=== PATIENT | male | born 1950 | race Caucasian/White ===

== ENCOUNTER 2018-03-24 13:31 | Observation (INO) | payer MEDICARE, OTHER ==
--- OUTSIDE RECORDS SUMMARY | 2018-03-24 14:07 | XMS REPORT ---
:1950 External Reference #:[id number] Author Organization [employer] Address [address] [facility] [address] [place] [address] [place] [address] Phone [phone] Care Team Providers Name Role Phone Antonia Fofana MD Primary Care Physician Unavailable Payers Type Date Identification Numbers Payment Provider Subscriber Medicare Primary Policy Number: [id number] Medicare Chris Murray PayID: [id number] [address] [place] [address] Medigap Part B Policy Number: [id number] Specific [employer] Xiomy Decoo PayID: [id number] [address] [place] [address] Problems Date Description Provider Status Onset: 02/22/2018 Localized, primary osteoarthritis Cherise Black M.D. Active Social History Type Date Description Comments Lives With Spouse Occupation Retired ETOH Use Drinks 5 Alcoholic Beverages Per Week Smoking Patient is a former smoker Exercise Type/Frequency Exercises sporadically Allergies, Adverse Reactions, Alerts Date Description Reaction Status Severity Comments 02/22/2018 Penicillin G RASH active ALL Forms Medications Medication Date Status Form Strength Qnty SIG Indications Ordering Provider Simvastatin Active Tablets 10mg Take 1 Unknown 000 Tablet By Mouth Every Day Losartan Active Tablets 50mg Take 1 Unknown Potassium 000 Tablet By Mouth Two Times Daily Azithromycin Active Tablets 500mg Take 1 Unknown 000 Tablet By Mouth One Hour Prior To Dental Procedure as Needed Metoprolol Active Tablets 25mg Take 1 Unknown Succinate ER 000 ER 24HR Tablet By Mouth Every Day Viagra 0 Active Tablets 50mg 1 by mouth Unknown 000 as needed Amlodipine Active Tablets 5mg Take 1 Unknown Besylate 000 Tablet By Mouth Every Day Vital Signs Date Vital Result Comment 02/22/2018 Height 72 inches 6'0" Weight 265.00 lb BP Systolic Sitting 102 mmHg BP Diastolic Sitting 64 mmHg Respiratory Rate 16 /min Body Temperature 98.2 F Pain Level 1 BMI (Body Mass Index) 35.9 kg/m2 Results Description No Information Procedures Date CPT Code Description Status 04/21/2016 92680 ECHO Transthorasic Realtime 2D W Doppler & Color Flow Completed Hosp Plan of Care 02/22/2018 - Cherise Black M.D.M25.562 Pain in left kneeFollow up:Follow up: M25.462 Effusion, left kneeM17.12 Unilateral primary osteoarthritis, left knee
--- OUTSIDE RECORDS SUMMARY | 2018-03-24 14:07 | XMS REPORT ---
:1950 External Reference #:[id number] Author Organization [employer] Address [address] [facility] [place] [address] [place] [address] Phone [phone] Care Team Providers Name Role Phone Antonia Fofana MD Primary Care Physician Unavailable Payers Type Date Identification Numbers Payment Provider Subscriber Medicare Primary Policy Number: [id number] Medicare Chris Murray PayID: [id number] [address] [place] [address] Medigap Part B Policy Number: [id number] [employer] Xiomy Decoo PayID: [id number] [address] [place] [address] Problems Date Description Provider Status Onset: 02/22/2018 [...] Procedures Date CPT Code Description Status 04/21/2016 14263 ECHO Transthorasic Realtime 2D W Doppler & Color Flow Completed Hosp Encounters Type Date Location Provider CPT E/M Dx Office Visit 02/22/2018 Orthopedic Services Cherise Black M.D. 75940 M25.562 2:30p Of [facility] M25.462 M17.12 Plan of Care 02/22/2018 - Cherise Black M.D.M25.562 Pain in left kneeFollow up:Follow up: M25.462 Effusion, left kneeM17.12 Unilateral primary osteoarthritis, left knee
--- OUTSIDE RECORDS SUMMARY | 2018-03-24 14:07 | XMS REPORT ---
:1950 External Reference #:[id number] Author Organization [email or web address] Address [address] [facility] [place] [address] [place] [address] Phone [phone] Care Team Providers Name Role Phone Antonia Fofana MD Primary Care Physician Unavailable Payers Type Date Identification Numbers Payment Provider Subscriber Medicare Primary Policy Number: [id number] Medicare Chris Murray PayID: [id number] [address] [place] [address] Medigap Part B Policy Number: [id number] [employer] Xiomy Decoo PayID: [id number] [address] [place] [address] Problems Date Description Provider Status Onset: 02/22/2018 [...] Procedures Date CPT Code Description Status 04/21/2016 15576 ECHO Transthorasic Realtime 2D W Doppler & Color Flow Completed Hosp Plan of Care 02/22/2018 - Cherise Black M.D.M25.562 Pain in left kneeFollow up:Follow up: M25.462 Effusion, left kneeM17.12 Unilateral primary osteoarthritis, left knee
--- NOTE | 2018-03-24 18:05 | ED ---
Neurological HPI - HPI Summary HPI Summary: This patient is a 68 year old M presenting to [facility] accompanied by his with a chief complaint of temporary loss of short term memory for 3.5 hours starting at 1800 last PM (03/23/18). Pt denies any current sx. His stated that He didnt look like someone who was having a stroke. Pt denies confusion , numbness, weakness. Endorses similar episode 15 years ago but it was must worse. Pt denies PMHx DM, endorses HTN, denies other medical problems. - History of Current Complaint Chief Complaint: EDGeneral Stated Complaint: GENERAL ILLNESS Time Seen by Provider: 03/24/18 17:13 Hx Obtained From: Patient, Family/Doll Surgeon Onset/Duration: Sudden Onset, Started hours ago, Resolved Timing: Sudden Onset Onset Severity: Moderate Current Severity: None Neurological Deficit Location: Generalized Pain Intensity: 0 Pain Scale Used: 0-10 Numeric Character: Other: - temporary short term amnesia Aggravating: Nothing Alleviating: Spontanious Resolution Associated Signs and Symptoms: Positive: Memory Loss. Negative: Confusion, Weakness, Loss of Consciousness, Numbness TPA Considered: No - Allergy/Home Medications Allergies/Adverse Reactions: Allergies Allergy/AdvReac Type Severity Reaction Status Date / Time Penicillins Allergy Hives Verified 03/24/18 16:52 Home Medications: Home Medications Losartan TAB* [Cozaar TAB*] 50 mg PO BID 03/24/18 [History Confirmed 03/24/18] Metoprolol Succinate XL TAB* [Toprol XL TAB*] 25 mg PO DAILY 03/24/18 [History Confirmed 03/24/18] Simvastatin TAB(NF) [Zocor(NF)] 10 mg PO DAILY 03/24/18 [History Confirmed 03/24] amLODIPine TAB* [Norvasc 5 mg TAB*] 5 mg PO DAILY 03/24/18 [History Confirmed ] PMH/Surg Hx/FS Hx/Imm Hx Endocrine/Hematology History: Denies: Hx Diabetes Cardiovascular History: Reports: Hx Hypertension History: Denies: Hx Renal Disease Sensory History: Reports: Hx Contacts or Glasses Opthamlomology History: Reports: Hx Contacts or Glasses EENT History: Denies: Hx Deafness - Surgical History Surgery Procedure, Year, and Place: RIGHT KNEE REPLACEMENT. BILAT MENISCUS SURGERY. TONSILLECTOMY Infectious Disease History: No Infectious Disease History: Denies: Traveled Outside the [place] in Last 30 Days - Family History Known Family History: Negative: Blood Disorder - Social History Occupation: Retired Lives: With Family - Alcohol Use: Occasionally Substance Use Type: Reports: None Smoking Status (MU): Former Smoker Review of Systems Negative: Fever, Other - confusion Neurological: Other - endorses amnesia of short term memory Negative: Weakness, Numbness All Other Systems Reviewed And Are Negative: Yes Physical Exam - Summary Physical Exam Summary: Appearance: Well appearing, no pain distress Skin: warm, dry, reflects adequate perfusion Head/face: normal Eyes: EOMI, LEAH ENT: normal Neck: supple, non-tender Respiratory: CTA, breath sounds present Cardiovascular: RRR, pulses symmetrical Abdomen: non-tender, soft Bowel: present Musculoskeletal: normal, strength/ROM intact Neuro: normal, sensory motor intact, A&Ox3, NIH score = 0 Triage Information Reviewed: Yes Vital Signs On Initial Exam: Initial Vitals Temp Pulse Resp BP Pulse Ox 98.1 F 66 16 127/79 99 03/24/18 13:34 03/24/18 13:34 03/24/18 13:34 03/24/18 13:34 03/24/18 13:34 Vital Signs Reviewed: Yes Diagnostics - Vital Signs Vital Signs Temp Pulse Resp BP Pulse Ox 03/24/18 17:51 17 120/96 03/24/18 17:21 61 13 122/78 96 03/24/18 17:00 60 17 96 03/24/18 16:51 62 19 146/95 98 03/24/18 13:34 98.1 F 66 16 127/79 99 - Laboratory Result Diagrams: 03/24/18 18:56 03/24/18 18:56 Lab Statement: Any lab studies that have been ordered have been reviewed, and results considered in the medical decision making process. - Radiology CXR Xray Interpretation: No Acute Changes Radiology Interpretation Completed By: Radiologist - No active disease. - CT Brain CT Interpretation: No Acute Changes CT Interpretation Completed By: Radiologist - No acute intracranial findings. Dr. Mart has reviewed this report. - EKG 1738 Cardiac Rate: NL - 66 EKG Rhythm: Sinus Rhythm ST Segment: Non-Specific EKG Interpretation: non-specific ST-T changes NIH Scale - NIH Scale Level of Consciousness: Alert/Keenly Responsive Ask Patient the Month and His/Her Age: Both Correct Ask Pt to Open/Close Eyes and Senior Director Of [employer]/Release Non-Paretic Hand: Both Correctly Best Gaze (Only Horizontal Eye Movement): Normal Visual Field Testing: No Visual Loss Facial Paresis-Pt to Smile & Close Eyes or Grimace Symmetry: Normal/Symmetrical Motor Function - Right Arm: No Drift-Holds 10 Seconds Motor Function - Left Arm: No Drift-Holds 10 Seconds Motor Function - Right Leg: No Drift-Holds 10 Seconds Motor Function - Left Leg: No Drift-Holds 10 Seconds Limb Ataxia-Must be out of Proportion to Weakness Present: Absent Sensory (Use Pinprick to Test Arms/Legs/Trunk/Face): Normal Best Language (Describe Picture, Name Items): No Aphasia Dysarthria (Read Several Words): Normal Extinction and Inattention: No Abnormality Total Score: 0 Course/Dx - Course Course Of Treatment: A 68-year-old M presents to the ED with a CC of FND from 8823-4526 last PM (03/23/18. (+) short term memory amnesia. (-) current sx, confusion, numbness, weakness. Similar episode with more severe sx 15 years ago , PMHx HTN. A CXR was (-). An EKG reveals nl sinus rythym of 66 BPM, non- specific ST-T changes. A CT brain was (-). In the ED course, pt was given tylenol, maalox, ASA, colace, heparace, zofran, toprol, senakot, zocor. - Differential Dx Differential Diagnoses Neuro: Positive: Cerebrovascular Accident, Intracranial Bleed, Transient Ischemic Attack - Diagnoses Provider Diagnoses: TIA (transient ischemic attack), TGA (transient global amnesia) - Physician Notifications Discussed Care Of Patient With: Susan Giles Time Discussed With Above Provider: 19:10 Instructed by Provider To: Other - accepted admission - Critical Care Time Critical Care Time: 30-74 min Discharge - Sign-Out/Discharge Documenting (check all that apply): Patient Departure - admit - Discharge Plan Condition: Fair Disposition: ADMITTED TO [facility] Referrals: Antonia Fofana MD [Primary Care Provider] - - Billing Disposition and Condition Condition: FAIR Disposition: Admitted to [facility]
--- NOTE | 2018-03-24 18:26 | RAD ---
INDICATION: TIA COMPARISON: None TECHNIQUE: Noncontrast axial source images were acquired from the skull base to the vertex. FINDINGS: Ventricles/sulci: The ventricles and cisterns are normal in size and configuration for age. Brain parenchyma: There is no focal parenchymal finding, evidence of intracranial mass, or intracranial mass effect. Intracranial hemorrhage:None. Extra-axial spaces: There are no abnormal extra axial fluid collections or evidence of extra-axial mass. Calvarium: There is no calvarial fracture or other calvarial abnormality. Scalp: There is no evidence of scalp or extracalvarial soft tissue abnormality. Paranasal sinuses/mastoid: The paranasal sinuses and mastoid air cells are clear. Other: None. IMPRESSION: No acute intracranial findings
[2018-03-24 19:04] LABS: ABS Basophils 0.1 10^3/ul (0-0.2); ABS Eosinophils 0.4 10^3/ul (0-0.6); ABS Lymphocytes 2.3 10^3/ul (1.0-4.8); ABS Monocytes 0.7 10^3/ul (0-0.8); ABS Neutrophils 4.8 10^3/ul (1.5-7.7); ABS Nucleated RBC 0 10^3/ul; Eosinophil % 4.8 % (0-6); Hematocrit 44 % (42-52); Hemoglobin 14.9 g/dl (14.0-18.0); Lymphocyte % 28.2 % (25-47); Mean Corpuscular HGB Conc 34 g/dl (31-36); Mean Corpuscular Hemoglobin 30 pg (27-31); Mean Corpuscular Volume 89 fL (80-94); Mean Platelet Volume 7.2 um3 (7.4-10.4); Nucleated Red Blood Cells % 0; Platelet Count 244 10^3/ul (150-450); Red Cell Distribution Width 14 % (10.5-15); White Blood Count 8.3 10^3/ul (3.5-10.8)
[2018-03-24 19:13] LABS: INR 0.95 (0.77-1.02)
[2018-03-24 19:23] LABS: EGFR Non-African American 75.6 (>60)
[2018-03-24] MEDS ORDERED: Senna TAB PO PRN (19:51)
[2018-03-24] MEDS ORDERED: Acetaminophen TAB* 325 MG PO PRN (19:51)
[2018-03-24] MEDS ORDERED: Docusate CAP* 100 MG PO PRN (19:51)
[2018-03-24] MEDS ORDERED: Ondansetron INJ* 2 MG/ML VIAL IV PRN (19:51)
[2018-03-24] MEDS ORDERED: Al Hydrox/Mg Hydrox/Simet LIQ* 30 ML UDC PO PRN (19:51)
[2018-03-24] MEDS ORDERED: Aspirin 81 mg CHEW TAB* 81 MG TAB.CHEW PO ONE (19:58)
--- NOTE | 2018-03-24 19:59 | RAD ---
INDICATION: TIA COMPARISON: None TECHNIQUE: An AP portable view obtained at 1758 hours is submitted. FINDINGS: Bones/Soft Tissues: There are no acute bony findings. Cardiomediastinal: The cardiomediastinal silhouette is normal. Lungs: There are no infiltrates. Pleura: There are no pleural effusions. Other: None IMPRESSION: NO ACTIVE DISEASE.
[2018-03-25] MEDS ORDERED: Atorvastatin* 40 MG TAB ONE (00:37)
[2018-03-25] MEDS: Heparin VIAL(*) 5000 UNITS/ML VIAL (FIVE THOUSAND) SUBCUT SCH ×3 (00:42→14:27)
[2018-03-25] MEDS: Atorvastatin* 10 MG TAB ONE ×2 (00:43→03:53)
--- NOTE | 2018-03-25 01:11 | HP ---
CC: Antonia Fofana MD * HISTORY AND PHYSICAL: DATE OF ADMISSION: 03/24/18 TIME OF EVALUATION: 1899. PRIMARY CARE PHYSICIAN: Antonia Fofana MD CHIEF COMPLAINT: Amnesia. HISTORY OF PRESENT ILLNESS: This is a 68-year-old male with a remote history of transient global amnesia, hypertension, and hyperlipidemia, who presents to the emergency room with another episode of amnesia. The patient's is at the bedside, who also provides the history. The patient states he was in his usual state of health yesterday. He is retired. He states that he does a lot of reading and does not do too much, and last evening he went to a [employer]. He split a half a bottle of wine, but did not drink at all with his friend and his states he just was not acting right last evening. He kept focussing on his glasses case, looking for perseverating on it. He remembers coming home from the [employer], but does not remember about 3.5 hours prior to that when the questioned what was going on last night as she was concerned about his behavior. They both realized that he did not remember at this time. They called Dr. Fofana and she recommended going to the emergency room for further evaluation. Last evening, his states that his gait was fine, no speech abnormalities, no weakness. He denied any headache, no vision changes, no numbness or tingling. No chest pain. No shortness of breath. No nausea, vomiting or diarrhea. No URI symptoms. No fevers. No changes in the weight. Otherwise, review of systems is negative. In the emergency room, the patient had labs, imaging, and was referred to the hospitalist service for further evaluation. PAST MEDICAL HISTORY: 1. Hypertension. 2. Hyperlipidemia. 3. 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 4. History of anxiety. MEDICATIONS: 1. Amlodipine 5 mg p.o. daily. 2. Metoprolol succinate 25 mg daily. 3. Simvastatin 10 mg daily. 4. Losartan 50 mg p.o. b.i.d. ALLERGIES: PENICILLIN, he develops hives. FAMILY HISTORY: Mother at age 103 from old age. Father decreased at age 87 from an MD. SOCIAL HISTORY: The patient lives at home with his , Xiomy Lopez, who is his healthcare proxy. He is a social drinker. When he drinks, he drinks about 1 to 2 glasses of wine. Remote smoker in his teens. No illicit drug use. 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 Code status is full code. REVIEW OF SYSTEMS: A 14-point review of systems as mentioned in the HPI. Otherwise, negative. PHYSICAL EXAMINATION GENERAL: No acute distress. Resting comfortably with his at the bedside. VITAL SIGNS: Temp is 98.1, pulse rate 63, respiratory rate 16, oxygen saturation 98% on room air, blood pressure 126/81. HEENT: Head normocephalic. Pupils equal and reactive. Anicteric. Oropharynx : Mucous membranes moist. NECK: Supple. No lymphadenopathy. RESPIRATORY: Clear to auscultation. No wheezes, rhonchi, or rales. CARDIAC: Regular rate and rhythm. Soft systolic murmur heard throughout. ABDOMEN: Soft, nontender, nondistended. EXTREMITIES: No clubbing, cyanosis, or edema. +2 DP. NEUROLOGIC: Cranial nerves II through XII intact. He has a subtle decrease in his nasolabial fold on the right. Negative pronator drift. Upper and lower muscle strength equal and symmetric. Normal pmtq-ik-tsop test. DIAGNOSTIC STUDIES/LAB DATA: White count 8.3, hemoglobin 14.9, hematocrit 44, platelets 244. INR is 0.95. Sodium 139, potassium 4.5, chloride 106, bicarb 27 , BUN 15, creatinine 0.98, troponin is 0. Radiographic Data: Head CT shows no acute intracranial findings. Normal sinus rhythm. Chest x-ray on wet read unremarkable. ASSESSMENT AND PLAN: This is a 68-year-old male with past medical history of transient global amnesia, hypertension, hyperlipidemia, who presents to the emergency room with another episode of amnesia. 1. Amnesia. Assessment: The patient's duration of the amnesia about 3.5 hours. No other associated symptoms. Workup unremarkable. He does have some subtle right- sided facial asymmetry. I did speak with Dr. Wolfe. Plan: Admit for observation to [facility]. Per her recommendations, order an MRI , EEG, and carotid Dopplers. We will continue him on neuro checks q.4 and we will give him a baby aspirin and continue that as well. We will hold his losartan and his amlodipine to allow for permissive hypertension and continue his metoprolol and Zocor for his hyperlipidemia. We will add on a lipid panel as well. 2. FEN. Heart-healthy diet. 3. DVT prophylaxis. The patient scores moderate risk. We will place him on heparin subcu t.i.d. 4. Code status. Full code. TIME SPENT: The patient time greater than 40 minutes was spent doing the history and physical, more than half the time was spent in direct patient contact. [id number] #: [id number] MADDY
[2018-03-25] MEDS ORDERED: Atorvastatin* 10 MG TAB PO SCH ×3 (03:00→23:40)
[2018-03-25] MEDS ORDERED: Metoprolol Succinate XL TAB* 25 MG PO SCH ×2 (03:00→09:00)
--- NOTE | 2018-03-25 08:44 | RAD ---
HISTORY: amnesia COMPARISONS: Head CT dated March 24, 2018 TECHNIQUE: The following sequences were obtained of the head: Sagittal T1-weighted images, axial T2-weighted images, axial FLAIR images, axial susceptibility weighted images, axial T1-weighted images. Additionally, axial diffusion-weighted images were obtained with calculated apparent diffusion coefficients. FINDINGS: HEMORRHAGE/INFARCT: There is no hemorrhage or acute infarct. MASSES/SHIFT: There is no mass or shift. EXTRA-AXIAL SPACES/MENINGES: There are no extra-axial fluid collections. SULCI AND VENTRICLES: The sulci and ventricles are normal in size and position for the patient's stated age. CEREBRUM: There are no focal parenchymal abnormalities. BRAINSTEM: There are no focal parenchymal abnormalities. CEREBELLUM: There are no focal parenchymal abnormalities. The cerebellar tonsils are normal in size and position. SELLA: The sella is normal. PINEAL: The pineal region is clear. CP ANGLE/TEMPORAL BONES: The labyrinthine structures are grossly normal. VESSELS: Normal flow-voids are noted within the visualized vertebral vasculature. DIFFUSION ABNORMALITIES: There are no diffusion abnormalities. PARANASAL SINUSES/MASTOIDS: The paranasal sinuses are clear. There is a left mastoid effusion. ORBITS: The orbits are unremarkable. BONES AND SOFT TISSUE: No bone or soft tissue abnormalities are noted. OTHER: None IMPRESSION: LEFT MASTOID EFFUSION. OTHERWISE UNREMARKABLE MRI OF THE BRAIN. R0
[2018-03-25] MEDS ORDERED: Aspirin 81 mg CHEW TAB* 81 MG TAB.CHEW PO SCH (09:00)
--- NOTE | 2018-03-25 09:45 | RAD ---
HISTORY: r/o stenosis/CVA COMPARISONS: None TECHNIQUE: Multiple transverse and longitudinal ultrasound images were obtained of the carotid and vertebral arteries bilaterally, using grayscale, color Doppler, and spectral Doppler imaging. FINDINGS: Measurement of carotid stenosis is based on flow velocity parameters that correlate the residual internal carotid artery diameter with [place] Symptomatic Carotid Endarterectomy Trial (NASCET)-based stenosis levels. RIGHT: Intima: There is diffuse intimal thickening with minimal focal atheroma formation at the bifurcation. Velocities: Right internal carotid artery maximum peak systolic velocity: 55 cm/s Right common carotid artery maximum peak systolic velocity: 93 cm/s Right internal carotid artery/common carotid artery ratio: 0.6 Waveforms: There is no spectral broadening. Right Vertebral: The right vertebral artery flow is antegrade. LEFT: Intima: There is diffuse intimal thickening with minimal focal atheroma formation at the bifurcation. Velocities: Left internal carotid artery maximum peak systolic velocity: 75 cm/s Left common carotid artery maximum peak systolic velocity: 138 cm/s Left internal carotid artery/common carotid artery ratio: 0.9 Waveforms: There is no spectral broadening. Left Vertebral: The left vertebral artery flow is antegrade. OTHER FINDINGS: None. IMPRESSION: 1. NO HEMODYNAMICALLY SIGNIFICANT STENOSIS OF THE RIGHT INTERNAL CAROTID ARTERY BY FLOW VELOCITY MEASUREMENTS. THIS CORRESPONDS TO A LUMINAL DIAMETER OF LESS THAN 50% STENOSIS BY NASCET CRITERIA. 2. NO HEMODYNAMICALLY SIGNIFICANT STENOSIS OF THE LEFT INTERNAL CAROTID ARTERY BY FLOW VELOCITY MEASUREMENTS. THIS CORRESPONDS TO A LUMINAL DIAMETER OF LESS THAN 50% STENOSIS BY NASCET CRITERIA. CPT II Codes: 3100F
[2018-03-25 15:36] VITALS: BP 107/63
--- NOTE | 2018-03-25 19:29 | CONS ---
CONSULTATION REPORT: DATE OF CONSULT: 03/25/18 PATIENT OF: Dr. Fofana and Dr. Greenfield. HISTORY OF PRESENT ILLNESS: This is a 68-year-old right-handed male who is evaluated for an episode of memory loss 2 days ago. He was at a concert with his when I spoke to his over the phone and he was fumbling and had worried that he had lost his glasses and was looking at them. He was acting a little odd according to his and could not remember what was played at the concert, which ordinarily he would have easily remembered. He had this short- term memory loss for about 3 to 3-1/[address] Fofana the next day, who spoke to me and I recommended that he be evaluated acutely for possible transient global amnesia and he came in. Of note, about 15 to 16 years ago, he had a very similar event. His was with him at that time and said that it was similar and it was thought to be transient global amnesia at that point. Of note, he had some underlying anxiety and with the first episode , he was quite anxious, but not with this episode. PAST MEDICAL HISTORY: He has a history of hypertension, hyperlipidemia, transient global amnesia 16 years ago, history of anxiety. MEDICATIONS: He is on medicines includin. Amlodipine 5 mg daily. 2. Metoprolol 25 mg daily. 3. Simvastatin 10 mg daily. 4. Losartan 50 mg b.i.d. ALLERGIES: He is allergic to PENICILLIN. FAMILY HISTORY: His mother at 103 from old age. His father at 87 from heart attack. SOCIAL HISTORY: He lives with his and he is a social drinker. REVIEW OF SYSTEMS: Negative to all 14 spheres other than HPI. PHYSICAL EXAM: On exam, temperature 97.4, pulse 51, respirations 20, blood pressure 115/67. He was alert and oriented with normal speech and comprehension. Cranial nerves II through XII were intact. Fundi were benign. Motor exam revealed normal tone, strength, coordination, and gait. Sensation intact to light touch. Romberg was negative. No pronator drift. Chest: Clear. Cardiovascular: Regular rate, rhythm. Abdomen: Soft with positive bowel sounds. DIAGNOSTIC STUDIES/LAB DATA: I reviewed his MRI scan, which was normal. I read his EEG, which was normal. His carotid Doppler was normal. His LDL was 56. CMP was normal. INR and PTT were normal. Normal CBC. ASSESSMENT AND PLAN: I discussed with Chris and his that he had what sounds like an episode of transient global amnesia, which can rarely occur more than once in the same patient. Discussed differential diagnosis, which would include transient ischemia, seizure, or psychological issues. I think in this case, the only thing to do from practical point of view at this point is he should be on a baby aspirin. If he has ongoing anxiety around this episode, they should speak to Dr. Fofana as an outpatient and possibly consider treatment for anxiety, but at this point, he does not appear particularly anxious and would not think he needs anything right this moment. Thank you for sharing his case. [id number]/CPS #: [id number] MADDY
[2018-03-25] MEDS ORDERED: Atorvastatin* 40 MG TAB PO SCH (23:40)
--- NOTE | 2018-03-26 00:36 | DS ---
CC: Dr. Antonia Fofana; Dr. Lorenzo * DISCHARGE SUMMARY: DATE OF ADMISSION: 03/24/18 DATE OF DISCHARGE: 03/25/18 PRIMARY CARE PROVIDER: Dr. Antonia Fofana. DISCHARGE DIAGNOSIS: An episode of amnesia likely due to transient global amnesia. SECONDARY DIAGNOSES: 1. History of transient global amnesia evident at the age of 53. 2. History of anxiety. 3. Hypertension. 4. Hyperlipidemia. MEDICATIONS AT DISCHARGE: Include: 1. Amlodipine 5 mg daily. 2. Metoprolol succinate 25 mg daily. 3. Simvastatin 10 mg daily. 4. Losartan 50 mg b.i.d. 5. Aspirin 81 mg daily. The aspirin is the new medication recommended by Neurology. CONSULTATIONS DURING THE HOSPITAL STAY: Included Dr. Lorenzo from Neurology. LABORATORY DATA AND STUDIES PERFORMED DURING THE HOSPITAL STAY: Included: The patient's cholesterol profile showed triglycerides of 100, cholesterol total of 115, LDL of 56, and HDL of 39. Brain MRI obtained on 03/25/18, impression: "Left mastoid effusion. Otherwise , unremarkable MRI of the brain." Carotid Doppler studies showed carotid artery stenosis below 50% in bilateral carotids. The patient's EEG, the verbal report I received from Dr. Lorenzo was, no epileptiform discharges were noted. HOSPITALIZATION COURSE: Chris Murray is a 68-year-old male, who had an episode of amnesia on 03/24/18. He roughly did not remember 3-1/2 hours of his day. He presented to the ED for evaluation. By that time, his problems with amnesia resolved. He still could not recall what happened when he went to a concert that he does not remember. He stated that he had a similar episode when he was 53 years old and for that, he was observed in the hospital and afterwards he developed anxiety for which he needed to take Xanax and that resolved. He denies any recent stressful events. The patient was observed on telemetry monitored bed with no arrhythmias noted. His workup included an MRI of the brain, which was unremarkable and carotid Dopplers that showed less than 50% stenosis. We are still awaiting the transthoracic echocardiogram but the patient wishes to be discharged prior to that being performed At discharge, the patient is neurologically intact and he is recommended to follow up with his primary care provider in 4 to 7 days. PHYSICAL EXAMINATION AT DISCHARGE: Unchanged from admission. [id number]/[facility] #: [id number] MADDY
--- NOTE | 2018-03-26 03:54 | EEG ---
ELECTROENCEPHALOGRAPHY: DATE OF STUDY: - ROOM #[id number] DATE OF DICTATION: 03/25/18 PATIENT OF: Dr. Colin and Dr. Fofana * CLINICAL PROBLEM: This is a 68-year-old man being evaluated for a second episode of transient memory loss. MEDICATIONS: Include: 1. Aspirin. 2. Heparin. 3. Lipitor. 4. Toprol. 5. Maalox. 6. Colace. 7. Zofran. 8. Senokot. REPORT: With the patient awake, background cerebral activity consists of moderate amplitude posterior dominant 10 Hz rhythm, which attenuates with eye opening and reappears with eye closure. The patient is drowsy. There is slowing to theta range. The patient never fully asleep. No epileptiform potentials or focal abnormalities. No major asymmetries of background are noted. CLINICAL IMPRESSION: Awake and drowsy EEG is within normal limits. [id number]/[facility] #: [id number] MADDY
== END 2018-03-25 15:49 | disposition home or self-care (01) ==
LOC: ED 13:31 → MEDTELE 21:08
PROVIDERS: ADMIT Pediatrics; ATTEND Internal Medicine
DX: R41.3 Other amnesia (principal); Z86.59 Personal history of other mental and behavioral disorders; I10 Essential (primary) hypertension; E78.5 Hyperlipidemia, unspecified; Z79.82 Long term (current) use of aspirin; Z87.891 Personal history of nicotine dependence
CPT/HCPCS: 36415; 70450; 70551; 71045; 80053; 80061; 84484; 85025; 85610; 85730; 93005; 93880; 95819; 99284; A9270-GY; G0378; J1644

== ENCOUNTER 2022-05-22 09:46 | Observation (INO) ==
[~2022-05-22 09:46] MED LIST: Buffered Lidocaine 1% SYRIN 1 ml INTRADERM ONE; Dexamethasone IV 4 MG/ML VIAL 1 ml VIAL IV SLOW PU ONE; Famotidine IV 10 MG/ML 2 ml VIAL (20 mg) IV ONE; Lactated Ringers 1000 ml BAG 1,000 ML IV SCH
[2022-05-22] MEDS ORDERED: Famotidine IV 10 MG/ML 2 ml VIAL (20 mg) ONE (10:33)
[2022-05-22] MEDS ORDERED: Dexamethasone IV 4 MG/ML VIAL 1 ml VIAL ONE (10:33)
[2022-05-22] MEDS ORDERED: Clindamycin 900 MG/D5W BAG 0 MG/0 ML BAG IVPB ONE (10:33)
[2022-05-22] MEDS ORDERED: Propofol 10 MG/ML 20 ML BTL ONE ×3 (10:41→15:54)
[2022-05-22] MEDS ORDERED: Lidocaine 2% PF 5 ML VIAL ONE (10:42)
[2022-05-22] MEDS ORDERED: Midazolam 2 mg/2 ml VIAL 1 mg/ml 2 ml VIAL (2 mg) ONE ×2 (12:09→13:30)
[2022-05-22] MEDS ORDERED: fentaNYL 100 mcg/2 ml 50 MCG/ML VIAL ONE (12:10)
[2022-05-22] MEDS ORDERED: ROPIVACAINE 5 MG/ML 30 ML BTL (0.5%) ONE (12:25)
[2022-05-22] MEDS ORDERED: fentaNYL 100 mcg/2 ml 50 MCG/ML VIAL IV PRN (12:29)
[2022-05-22] MEDS ORDERED: Morphine 4 MG/ML VIAL (1 ml) IV PRN (12:29)
[2022-05-22] MEDS ORDERED: Naloxone 0.4 mg VIAL 0.4 mg/ml 1 ml VIAL IV PRN (12:29)
[2022-05-22] MEDS ORDERED: Prochlorperazine 5 mg/ml 2 ml VIAL (10 mg) IV PRN (12:29)
[2022-05-22] MEDS ORDERED: Ropivacaine 5 MG/ML 20 ML VIAL 0.5% (100 MG) ONE (12:57)
[2022-05-22] MEDS ORDERED: ceFAZolin 2 GM in NS PREMIX 2 GM/100 ML BAG IVPB ONE (13:03)
[2022-05-22] MEDS ORDERED: ceFAZolin 1 GM in Dextrose 1 GM/50 ML BAG ONE (13:04)
[2022-05-22] MEDS ORDERED: Ketamine HCL 50 mg/ml 10 ml VIAL (500 MG) ONE (13:30)
[2022-05-22] MEDS ORDERED: Sterile Water for Inj 10 ML ONE (13:39)
[2022-05-22] MEDS ORDERED: Acetaminophen IV 1 GM/100ML 1,000 MG/100 ML BAG IV ONE (14:09)
[2022-05-22] MEDS ORDERED: Ondansetron 4 mg VIAL 2 MG/ML 2 ml VIAL ONE (14:18)
[2022-05-22] MEDS ORDERED: Magnesium Hydroxide LIQ 30 ML UDC PO PRN (16:12)
[2022-05-22] MEDS ORDERED: Ondansetron ODT 4 mg TAB 4 MG TAB PO PRN (16:12)
[2022-05-22] MEDS ORDERED: Morphine 2 MG/ML SYRINGE IV PRN (16:12)
[2022-05-22] MEDS ORDERED: Lactulose 30 ml UDC PO PRN (16:12)
[2022-05-22] MEDS ORDERED: Ondansetron 4 mg VIAL 2 MG/ML 2 ml VIAL IV PRN (16:12)
[2022-05-22] MEDS ORDERED: Lactated Ringers 1000 ml BAG 1,000 ML IV SCH (17:00)
[2022-05-22] MEDS: Magnesium Hydroxide LIQ 30 ML UDC PO SCH (21:47)
[2022-05-22] MEDS ORDERED: ceFAZolin 1 GM ADVAN 1 GM in NS 0.9% 50 ML 50 ML IVPB SCH (22:00)
[2022-05-23 06:06] LABS: Hematocrit 38 % (42-52); Hemoglobin 12.3 g/dL (14.0-18.0); Mean Platelet Volume 7.7 fL (7.4-10.4); Platelet Count 203 10^3/uL (150-450)
[2022-05-23 06:26] LABS: Calcium 8.7 mg/dL (8.6-10.3); Potassium 4.3 mmol/L (3.5-5.0); eGFR CKD-EPI 92.2 (>60)
[2022-05-23] MEDS ORDERED: ceFAZolin 1 GM ADVAN 1 GM in NS 0.9% 50 ML 50 ML IVPB SCH (08:00)
[2022-05-23] MEDS: Magnesium Hydroxide LIQ 30 ML UDC PO SCH (08:21)
[2022-05-23] MEDS ORDERED: Aspirin EC 81 mg TAB.EC (enteric coated) PO SCH (09:00)
[2022-05-23] MEDS ORDERED: Vitamin THERAPEUTIC TAB PO SCH (09:00)
[2022-05-23 12:41] VITALS: BP 123/75
== END 2022-05-23 14:55 | disposition home or self-care (01) ==
LOC: OR 09:46 → SSU 09:46
PROVIDERS: ADMIT Orthopaedic Surgery Adult Reconstructive Orthopaedic Surgery; ATTEND Orthopaedic Surgery Adult Reconstructive Orthopaedic Surgery